=== PATIENT | female | born 1950 | race African-American/Black ===

== ENCOUNTER → 2017-09-06 | Outpatient (CLI) | payer OTHER | END | disposition home or self-care (01) | LOC: RAD 14:11 | PROVIDERS: ATTEND Specialist | DX: M79.642 Pain in left hand (principal); M79.641 Pain in right hand | CPT/HCPCS: 73130 ==

== ENCOUNTER 2019-01-20 09:21 | Inpatient (IN) | payer MEDICARE, OTHER ==
[~2019-01-20] VITALS: Ht 152.4 cm; Wt 55.3 kg
[2019-01-20] MEDS ORDERED: ONDANSETRON HCL 4MG/2ML INJ IV STA (09:59)
[2019-01-20] MEDS ORDERED: LISINOPRIL 10MG TABLET PO ONE (10:00)
[2019-01-20 10:25] LABS: BASOPHILS % 0.8 % (0.0-2.0); EOSINOPHILS % 1.9 % (0.0-5.0); HEMATOCRIT. 34.7 % (36.0-48.0); HEMOGLOBIN. 11.3 g/dL (12.0-16.0); LYMPHOCYTES % 61.3 % (20.0-50.0); MEAN CORPUSCULAR HEMOGLOBIN 26.1 pg (28.0-32.0); MEAN PLATELET VOLUME 8.5 fl (7.4-10.4); PLATELET 280 x1000/uL (130-400); RED BLOOD CELL COUNT 4.33 mill/uL (4.2-5.4)
[2019-01-20 10:32] LABS: CHLORIDE 108 mEq/L (98-107)
[2019-01-20 10:35] LABS: INR 1.1; PARTIAL THROMBOPLASTIN TIME 27.5 sec (23.4-31.0)
[2019-01-20] MEDS ORDERED: ASPIRIN 81MG TABLET PO ONE (11:00)
[2019-01-20] MEDS ORDERED: NITROGLYCERIN 0.4MG TABLET SL SL PRN (14:45)
[2019-01-20] MEDS ORDERED: LORAZEPAM 0.5MG TABLET PO PRN (14:45)
[2019-01-20] MEDS ORDERED: GUAIFENESIN 200MG/10ML SUGAR FREE UDC PO PRN (14:45)
[2019-01-20] MEDS ORDERED: ACETAMINOPHEN 325MG TABLET PO PRN (14:45)
[2019-01-20] MEDS ORDERED: CLONIDINE 0.1MG TABLET PO PRN (14:45)
[2019-01-20] MEDS ORDERED: DOCUSATE SODIUM 100MG CAPSULE PO PRN (14:45)
[2019-01-20] MEDS ORDERED: ONDANSETRON HCL 4MG/2ML INJ IV PRN (14:45)
[2019-01-20] MEDS ORDERED: TRAMADOL 50MG TABLET PO PRN (14:45)
[2019-01-20] MEDS ORDERED: NA PHOS,M-B/NA PHOS,DI-BA ENEMA 118ML PR PRN (14:45)
[2019-01-20] MEDS ORDERED: DEXTROSE 50% WATER 50ML SYRINGE IV PRN (14:45)
[2019-01-20] MEDS ORDERED: IPRATROPIUM/ALBUTEROL 0.5-3(2.5)MG/3ML NEB INH PRN (14:45)
[2019-01-20] MEDS ORDERED: MAGNESIUM/ALUMINUM HYDROXIDE/SIMETHICONE 30ML UDC PO PRN (14:45)
[2019-01-20 15:27] LABS: T4 FREE 1.28 ng/dL (0.76-1.46)
[2019-01-20 15:40] VITALS: BP 131/77
[2019-01-20] MEDS ORDERED: MORPHINE SULFATE 4 MG/ML CPJ (NOT FOR IM USE) IV PRN (15:45)
[2019-01-20 15:46] LABS: COLOR URINE YELLOW (YELLOW); KETONES URINE NEGATIVE (NEGATIVE); LEUKOCYTE ESTERASE URINE 2+ (NEGATIVE); NITRITE URINE NEGATIVE (NEGATIVE); OCCULT BLOOD URINE NEGATIVE (NEGATIVE); PH URINE 6.5 (4.5-8.0); PROTEIN URINE NEGATIVE (NEGATIVE); SPECIFIC GRAVITY URINE 1.007 (1.005-1.030); UROBILINOGEN URINE 0.2 E.U./dL (0.2-1.0)
[2019-01-20 15:49] LABS: FOLIC ACID (FOLATE) SERUM 12.3 ng/mL (>5.38)
[2019-01-20 15:53] LABS: CLARITY URINE CLEAR (CLEAR)
[2019-01-20] MEDS: ENOXAPARIN 40MG/0.4ML SYR SUBCUT SCH (17:44)
[2019-01-20 18:00] VITALS: BP 128/72
[2019-01-20] MEDS: BLOOD SUGAR DIAGNOSTIC STRIP TEST SCH ×2 (18:15→21:21)
[2019-01-20] MEDS: INSULIN LISPRO 100 UNITS/ML SUBCUT SCH ×2 (18:27→21:00)
[2019-01-20] MEDS ORDERED: LISI10TA5 MT (19:11)
[2019-01-20] MEDS ORDERED: METF-416 MT (19:11)
[2019-01-20] MEDS ORDERED: CALC-61 MT (19:12)
[2019-01-20] MEDS ORDERED: ASPI-1160 MT (19:13)
[2019-01-20] MEDS ORDERED: CLON0.5T MT (19:15)
[2019-01-20 20:00] VITALS: BP 126/68
[2019-01-20] MEDS ORDERED: METOPROLOL TARTRATE 25MG TABLET PO SCH (21:00)
[2019-01-20] MEDS: FAMOTIDINE 20MG TABLET PO SCH (21:21)
[2019-01-20] MEDS: ZOLPIDEM TARTRATE 5MG TABLET PO PRN (21:21)
[2019-01-20 21:33] LABS: CREATINE KINASE 37 IU/L (26-192)
[2019-01-20 21:34] LABS: CREATINE KINASE MB FRACTION < 1.0 ng/mL (0.5-3.6)
[2019-01-20] MEDS ORDERED: PNEUMOCOCCAL 23-VAL P-SAC VAC 0.5 ML IM ONE (21:45)
[2019-01-21] VITALS: BP 119/63
[2019-01-21 04:00] VITALS: BP 120/70
[2019-01-21] MEDS: BLOOD SUGAR DIAGNOSTIC STRIP TEST SCH ×4 (06:06→21:39)
[2019-01-21] MEDS: INSULIN LISPRO 100 UNITS/ML SUBCUT SCH ×4 (06:17→21:00)
[2019-01-21 07:01] LABS: HEMATOCRIT. 29.6 % (36.0-48.0); HEMOGLOBIN. 9.6 g/dL (12.0-16.0); MEAN CORPUSCULAR HEMOGLOBIN 25.7 pg (28.0-32.0); MEAN CORPUSCULAR VOLUME 79.3 fL (81.0-99.0); MEAN PLATELET VOLUME 8.7 fl (7.4-10.4); PLATELET 274 x1000/uL (130-400); RED BLOOD CELL COUNT 3.73 mill/uL (4.2-5.4)
[2019-01-21 07:05] LABS: CHLORIDE 109 mEq/L (98-107)
[2019-01-21 07:29] LABS: CREATINE KINASE 32 IU/L (26-192)
[2019-01-21 07:33] LABS: CREATINE KINASE MB FRACTION 1.1 ng/mL (0.5-3.6)
[2019-01-21 08:00] VITALS: BP 133/78
[2019-01-21] MEDS: ASPIRIN 325MG EC TABLET PO SCH (09:30)
[2019-01-21] MEDS: FAMOTIDINE 20MG TABLET PO SCH ×2 (09:33→21:44)
[2019-01-21] MEDS: LISINOPRIL 10MG TABLET PO SCH (09:49)
[2019-01-21] MEDS ORDERED: REGADENOSON 0.4 MG/5 ML IV NR (10:30)
[2019-01-21] MEDS: METOPROLOL TARTRATE 25MG TABLET PO SCH ×2 (12:18→21:44)
[2019-01-21 12:30] VITALS: BP 147/73
[2019-01-21 13:44] LABS: PLATELET ESTIMATE NORMAL
[2019-01-21 16:00] VITALS: BP 128/74
[2019-01-21] MEDS: ENOXAPARIN 40MG/0.4ML SYR SUBCUT SCH (16:49)
[2019-01-21 20:00] VITALS: BP 130/80
[2019-01-21] MEDS: ZOLPIDEM TARTRATE 5MG TABLET PO PRN (21:44)
[2019-01-22] VITALS: BP 135/85
[2019-01-22 04:00] VITALS: BP 114/60
[2019-01-22] MEDS: INSULIN LISPRO 100 UNITS/ML SUBCUT SCH ×2 (06:50→12:54)
[2019-01-22] MEDS: BLOOD SUGAR DIAGNOSTIC STRIP TEST SCH ×2 (06:50→12:30)
[2019-01-22 06:59] LABS: HEMATOCRIT. 29.9 % (36.0-48.0); HEMOGLOBIN. 9.6 g/dL (12.0-16.0); MEAN CORPUSCULAR HEMOGLOBIN 25.8 pg (28.0-32.0); MEAN PLATELET VOLUME 8.5 fl (7.4-10.4); PLATELET 261 x1000/uL (130-400); RED BLOOD CELL COUNT 3.74 mill/uL (4.2-5.4); RED CELL DISTRIBUTION WIDTH 13.9 % (11.6-14.6)
[2019-01-22 08:00] VITALS: BP 119/47
[2019-01-22 08:27] LABS: CHLORIDE 111 mEq/L (98-107)
[2019-01-22] MEDS: FAMOTIDINE 20MG TABLET PO SCH (08:28)
[2019-01-22] MEDS: ASPIRIN 325MG EC TABLET PO SCH (08:28)
[2019-01-22] MEDS: LISINOPRIL 10MG TABLET PO SCH (08:28)
[2019-01-22] MEDS: METOPROLOL TARTRATE 25MG TABLET PO SCH (08:28)
[2019-01-22] MEDS ORDERED: REGADENOSON 0.4 MG/5 ML IV ONE ×2 (09:44→10:00)
[2019-01-22 10:41] LABS: PLATELET ESTIMATE NORMAL
[2019-01-22 12:00] VITALS: BP 126/71
[2019-01-22 13:20] VITALS: BP 126/71
[2019-01-22] MEDS: ENOXAPARIN 40MG/0.4ML SYR SUBCUT SCH (14:04)
[2019-01-22] MEDS ORDERED: FAMOTIDINE 20MG TABLET PO SCH (21:00)
== END 2019-01-22 14:40 | disposition home or self-care (01) | DRG 206 ==
LOC: ER 09:21 → 8WST 12:35 → EDBEDREQ 12:44 → ENRESERV 13:03 → SUPCPDRO 14:32
PROVIDERS: ADMIT Internal Medicine; ATTEND Internal Medicine
DX: M94.0 Chondrocostal junction syndrome [Tietze] (principal); K21.9 Gastro-esophageal reflux disease without esophagitis; I10 Essential (primary) hypertension; E11.9 Type 2 diabetes mellitus without complications; D63.8 Anemia in other chronic diseases classified elsewhere; E78.5 Hyperlipidemia, unspecified; G47.30 Sleep apnea, unspecified; W06.XXXA Fall from bed, initial encounter; Y93.89 Activity, other specified; Y92.89 Other specified places as the place of occurrence of the external cause; Y99.8 Other external cause status; Z87.891 Personal history of nicotine dependence; Z79.4 Long term (current) use of insulin; Z79.899 Other long term (current) drug therapy; Z82.49 Family history of ischemic heart disease and other diseases of the circulatory system
CPT/HCPCS: 36415; 71045; 78452; 80048; 80061; 82550; 82553; 82607; 82746; 82962; 83036; 83540; 83550; 83735; 83880; 84439; 84443; 84484; 93005; 93017; 93306; 93970; 96374; 97161; 99285; A9500; J1650; J1815; J2405; J2785

== ENCOUNTER 2020-01-18 12:20 | Emergency (ER) | payer MEDICARE, OTHER ==
[~2020-01-18] VITALS: Ht 162.6 cm; Wt 54.0 kg
[~2020-01-18 12:20] MED LIST: ASPI-1160 MT; CALC-61 MT; CLON0.5T MT; LISI10TA5 MT; METF-416 MT
[2020-01-18 19:04] VITALS: BP 160/70
== END 2020-01-18 19:04 | disposition home or self-care (01) ==
LOC: ER 12:46
DX: S20.212A Contusion of left front wall of thorax, initial encounter (principal); X58.XXXA Exposure to other specified factors, initial encounter; Y93.89 Activity, other specified; Y92.89 Other specified places as the place of occurrence of the external cause; Y99.8 Other external cause status; E11.9 Type 2 diabetes mellitus without complications; I10 Essential (primary) hypertension; Z90.710 Acquired absence of both cervix and uterus; Z79.82 Long term (current) use of aspirin; Z79.899 Other long term (current) drug therapy
CPT/HCPCS: 71045; 93005; 99283

== ENCOUNTER 2020-09-03 00:16 | Inpatient (IN) | payer MEDICARE, OTHER ==
[~2020-09-03] VITALS: Ht 309.9 cm; Wt 54.0 kg
[2020-09-03] MEDS ORDERED: SODIUM CHLORIDE 0.9% 1,000 ML IV ONE (04:15)
[2020-09-03 05:00] LABS: BASOPHILS % 0.1 % (0.0-2.0); EOSINOPHILS % 0.2 % (0.0-5.0); HEMATOCRIT. 34.7 % (36.0-48.0); HEMOGLOBIN. 11.4 g/dL (12.0-16.0); LYMPHOCYTES % 7.3 % (20.0-50.0); MEAN CORPUSCULAR HEMOGLOBIN 27.2 pg (28.0-32.0); MEAN CORPUSCULAR VOLUME 83.3 fL (81.0-99.0); MEAN PLATELET VOLUME 9.5 fl (7.4-10.4); MONOCYTES % 4.3 % (2.0-8.0); NEUTROPHILS % 88.1 % (40.0-76.0); PLATELET 207 x1000/uL (130-400); RED BLOOD CELL COUNT 4.17 mill/uL (4.2-5.4); RED CELL DISTRIBUTION WIDTH 13.9 % (11.6-14.6)
[2020-09-03 05:07] LABS: CHLORIDE 104 mEq/L (98-107)
[2020-09-03] MEDS ORDERED: DEXTROSE 50% WATER 50ML SYRINGE IV PRN (09:30)
[2020-09-03] MEDS ORDERED: ACETAMINOPHEN 325MG TABLET PO PRN (09:30)
[2020-09-03] MEDS ORDERED: ONDANSETRON HCL 4MG/2ML INJ IV PRN (09:30)
[2020-09-03 10:12] VITALS: BP 155/72
[2020-09-03] MEDS: AMLODIPINE 10MG TABLET PO SCH (11:01)
[2020-09-03 12:00] VITALS: BP 136/74
[2020-09-03] MEDS: BLOOD SUGAR DIAGNOSTIC STRIP TEST SCH ×3 (12:10→19:27)
[2020-09-03] MEDS: LISINOPRIL 2.5MG TABLET PO SCH (15:51)
[2020-09-03 16:00] VITALS: BP 127/71
[2020-09-03] MEDS: INSULIN LISPRO 100 UNITS/ML SUBCUT SCH ×2 (17:40→19:31)
[2020-09-03 20:00] VITALS: BP_SYST 111; BP_SYST 124; BP_SYST 128; BP_DIAS 57; BP_DIAS 65; BP_DIAS 80
[2020-09-03 23:30] VITALS: BP 112/66
[2020-09-04 03:07] LABS: CLARITY URINE CLEAR (CLEAR); COLOR URINE YELLOW (YELLOW); KETONES URINE NEGATIVE (NEGATIVE); LEUKOCYTE ESTERASE URINE NEGATIVE (NEGATIVE); NITRITE URINE NEGATIVE (NEGATIVE); OCCULT BLOOD URINE NEGATIVE (NEGATIVE); PROTEIN URINE NEGATIVE (NEGATIVE); SPECIFIC GRAVITY URINE 1.011 (1.005-1.030); UROBILINOGEN URINE 0.2 E.U./dL (0.2-1.0)
[2020-09-04 04:00] VITALS: BP_SYST 109; BP_SYST 122; BP_SYST 124; BP_DIAS 53; BP_DIAS 68; BP_DIAS 80
[2020-09-04] MEDS: INSULIN LISPRO 100 UNITS/ML SUBCUT SCH ×4 (05:33→21:00)
[2020-09-04] MEDS: BLOOD SUGAR DIAGNOSTIC STRIP TEST SCH ×4 (05:33→21:00)
[2020-09-04 06:00] LABS: CHLORIDE 110 mEq/L (98-107)
[2020-09-04 06:20] LABS: BASOPHILS % 0.7 % (0.0-2.0); EOSINOPHILS % 4.7 % (0.0-5.0); HEMATOCRIT. 28.7 % (36.0-48.0); HEMOGLOBIN. 9.3 g/dL (12.0-16.0); LYMPHOCYTES % 37.4 % (20.0-50.0); MEAN CORPUSCULAR HEMOGLOBIN 26.9 pg (28.0-32.0); MEAN CORPUSCULAR VOLUME 82.7 fL (81.0-99.0); MEAN PLATELET VOLUME 10.2 fl (7.4-10.4); MONOCYTES % 6.7 % (2.0-8.0); NEUTROPHILS % 50.5 % (40.0-76.0); PLATELET 159 x1000/uL (130-400); RED BLOOD CELL COUNT 3.46 mill/uL (4.2-5.4); RED CELL DISTRIBUTION WIDTH 14.4 % (11.6-14.6)
[2020-09-04 08:00] VITALS: BP 123/55
[2020-09-04] MEDS: LISINOPRIL 2.5MG TABLET PO SCH (08:51)
[2020-09-04] MEDS: AMLODIPINE 10MG TABLET PO SCH (08:51)
[2020-09-04 12:00] VITALS: BP 131/68
[2020-09-04 16:00] VITALS: BP 129/65
[2020-09-04 20:00] VITALS: BP_SYST 124; BP_SYST 149; BP_SYST 158; BP_DIAS 74; BP_DIAS 87; BP_DIAS 88
[2020-09-04] MEDS ORDERED: IOHEXOL-350 100 ML BOTTLE ONE (21:58)
[2020-09-05] VITALS: BP 151/79
[2020-09-05 04:00] VITALS: BP 147/75
[2020-09-05 06:44] LABS: BASOPHILS % 0.6 % (0.0-2.0); CHLORIDE 110 mEq/L (98-107); EOSINOPHILS % 3.1 % (0.0-5.0); HEMATOCRIT. 29.7 % (36.0-48.0); HEMOGLOBIN. 9.8 g/dL (12.0-16.0); LYMPHOCYTES % 42.8 % (20.0-50.0); MEAN CORPUSCULAR HEMOGLOBIN 27.3 pg (28.0-32.0); MEAN CORPUSCULAR VOLUME 82.3 fL (81.0-99.0); MONOCYTES % 8.4 % (2.0-8.0); NEUTROPHILS % 45.1 % (40.0-76.0); PLATELET 178 x1000/uL (130-400); RED BLOOD CELL COUNT 3.61 mill/uL (4.2-5.4); RED CELL DISTRIBUTION WIDTH 14.3 % (11.6-14.6)
[2020-09-05] MEDS: INSULIN LISPRO 100 UNITS/ML SUBCUT SCH ×2 (06:57→12:18)
[2020-09-05] MEDS: BLOOD SUGAR DIAGNOSTIC STRIP TEST SCH ×2 (06:57→12:18)
[2020-09-05 08:00] VITALS: BP_SYST 141; BP_SYST 145; BP_SYST 167; BP_DIAS 75; BP_DIAS 76; BP_DIAS 81
[2020-09-05] MEDS: AMLODIPINE 10MG TABLET PO SCH (08:38)
[2020-09-05] MEDS: LISINOPRIL 2.5MG TABLET PO SCH (08:38)
[2020-09-05 10:41] VITALS: BP_SYST 128; BP_SYST 150; BP_SYST 158; BP_DIAS 76; BP_DIAS 79; BP_DIAS 81
[2020-09-05 10:45] VITALS: BP 128/75
[2020-09-05 12:00] VITALS: BP 152/84
== END 2020-09-05 14:45 | disposition home or self-care (01) | DRG 74 ==
LOC: ER 00:32 → 8WST 05:44 → EDBEDREQTM 05:51 → EDBEDREQ 05:51 → ENRESERV 07:39
PROVIDERS: ADMIT Internal Medicine; ATTEND Internal Medicine
DX: G90.8 Other disorders of autonomic nervous system (principal); I10 Essential (primary) hypertension; E11.42 Type 2 diabetes mellitus with diabetic polyneuropathy; R20.0 Anesthesia of skin; M79.609 Pain in unspecified limb; R26.89 Other abnormalities of gait and mobility; D64.9 Anemia, unspecified; Z79.82 Long term (current) use of aspirin; Z79.84 Long term (current) use of oral hypoglycemic drugs; Z79.899 Other long term (current) drug therapy; Z90.710 Acquired absence of both cervix and uterus; Z82.49 Family history of ischemic heart disease and other diseases of the circulatory system; R42 Dizziness and giddiness
CPT/HCPCS: 36415; 70496; 71045; 80048; 80053; 80061; 81003; 82962; 83735; 83880; 84484; 85025; 93005; 93306; 93880; 97112; 97116; 97162; 97166; 97530; 97535; 99285; J1815; J7030; Q9967